=== PATIENT | male | born 1950 | race Caucasian/White ===

== ENCOUNTER 2020-12-19 13:24 | Outpatient (REF) | payer MEDICARE, SELFPAY ==
[2020-12-19 13:58] LABS: MANUAL DIFF FLAG NO
[2020-12-19 14:04] LABS: Basophils Percent Auto 0.3 % (0-2); Eosinophils Absolute Auto 0.1 X10*3/uL (0.0-0.4); Eosinophils Percent Auto 1.3 % (0-4); Hematocrit 40.5 % (42-52); Imm Gran Abs Auto 0.01 X10*3/uL (0.00-0.03); Imm Gran Pct Auto 0.2 % (0.0-0.4); Lymphocytes Percent Auto 31.9 % (20-40); Mean Corpuscular HGB Conc 32.1 g/dl (31.0-36.0); Mean Corpuscular Hemoglobin 29.3 pg (27.0-33.0); Mean Corpuscular Volume 91.2 fL (80-98); Mean Platelet Volume 10.4 fL (9.4-12.4); Monocytes Absolute Auto 0.6 X10*3/uL (0.1-1.2); Monocytes Percent Auto 8.7 % (2-11); Neutrophils Absolute Auto 3.7 X10*3/uL (2.0-8.3); Neutrophils Percent Auto 57.6 % (45-73); Platelet Count 196 X10*3/uL (160-400); Red Blood Count 4.44 X10*6/uL (4.60-5.80); Red Cell Distribution Width 13.6 % (11.0-16.0); White Blood Count 6.3 X10*3/uL (4.8-10.8)
[2020-12-19 14:21] LABS: Alanine Aminotransferase 11 U/L (0-40); Albumin Level 4.3 g/dL (3.5-5.0); Alkaline Phosphatase 61 U/L (39-117); Anion Gap 10 (12-20); Aspartate Amino Transferase 19 U/L (5-37); Bilirubin Total 0.6 mg/dL (0.0-1.0); Blood Urea Nitrogen 23 mg/dL (9-16); Calcium 9.5 mg/dL (8.4-10.2); Carbon Dioxide 28 mmol/L (22-29); Chloride 104 mmol/L (96-108); Estimated Glomerular Filt Rate > 60; Glucose Random 91 mg/dL (60-115); Potassium 4.4 mmol/L (3.3-5.1); Sodium 138 mmol/L (135-145); Total Protein 6.8 g/dL (6.5-8.0)
== END 2020-12-19 13:25 | disposition home or self-care (01) ==
LOC: HO.LAB 13:24
PROVIDERS: PCP Family Medicine; Visit Provider Family Medicine
DX: R53.83 Other fatigue (principal)
CPT/HCPCS: 36415; 80053; 85025

== ENCOUNTER 2022-12-12 12:57 | Outpatient (REF) | payer MEDICARE, SELFPAY ==
[2022-12-12 13:55] LABS: MANUAL DIFF FLAG NO
[2022-12-12 14:05] LABS: Basophils Percent Auto 0.5 % (0-2); Eosinophils Absolute Auto 0.1 X10*3/uL (0.0-0.4); Eosinophils Percent Auto 1.1 % (0-4); Hematocrit 41.4 % (42.0-52.0); Hemoglobin 13.5 g/dl (14.0-18.0); Imm Gran Abs Auto 0.01 X10*3/uL (0.00-0.03); Imm Gran Pct Auto 0.2 % (0.0-0.4); Lymphocytes Absolute Auto 1.9 X10*3/uL (1.2-4.9); Lymphocytes Percent Auto 29.6 % (20-40); Mean Corpuscular HGB Conc 32.6 g/dl (31.0-36.0); Mean Corpuscular Hemoglobin 29.9 pg (27.0-33.0); Mean Corpuscular Volume 91.8 fL (80.0-98.0); Mean Platelet Volume 10.9 fL (9.4-12.4); Monocytes Absolute Auto 0.4 X10*3/uL (0.1-1.2); Monocytes Percent Auto 6.5 % (2-11); Neutrophils Absolute Auto 3.9 x10*3/uL (2.0-8.3); Neutrophils Percent Auto 62.1 % (45-73); Platelet Count 191 X10*3/uL (160-400); Red Blood Count 4.51 X10*6/uL (4.60-5.80); Red Cell Distribution Width 13.2 % (11.0-16.0); White Blood Count 6.3 X10*3/uL (4.8-10.8)
[2022-12-12 14:47] LABS: Anion Gap 12 (12-20); Blood Urea Nitrogen 19 mg/dL (9-16); Carbon Dioxide 27 mmol/L (22-29); Chloride 104 mmol/L (96-108); Estimated Glomerular Filt Rate > 60; Potassium 3.7 mmol/L (3.3-5.1); Sodium 139 mmol/L (135-145)
== END 2022-12-12 12:58 | disposition home or self-care (01) ==
LOC: HO.LAB 12:57
PROVIDERS: PCP Family Medicine; Visit Provider Family Medicine
DX: M19.90 Unspecified osteoarthritis, unspecified site (principal); M81.0 Age-related osteoporosis without current pathological fracture; I10 Essential (primary) hypertension
CPT/HCPCS: 36415; 80051; 82306; 82565; 84520; 85025

== ENCOUNTER 2024-10-13 10:01 | Outpatient (REF) | payer MEDICARE, SELFPAY ==
[2024-10-13 11:32] LABS: Anion Gap 13 (12-20); Blood Urea Nitrogen 20 mg/dL (9-16); Carbon Dioxide 27 mmol/L (22-29); Chloride 105 mmol/L (96-108); Estimated Glomerular Filt Rate > 60; Potassium 4.2 mmol/L (3.3-5.1); Sodium 141 mmol/L (135-145)
== END 2024-10-13 10:02 | disposition home or self-care (01) ==
LOC: HO.LAB 10:01
PROVIDERS: PCP Family Medicine; Visit Provider Family Medicine
DX: I10 Essential (primary) hypertension (principal)
CPT/HCPCS: 36415; 80051; 82565; 84520

== ENCOUNTER 2025-01-27 08:02 | Outpatient (AMB) | payer MEDICARE, SELFPAY ==
--- NOTE | 2025-01-27 08:03 | MHC.PC.OV ---
Vital Signs 01/27/25 08:09 01/27/25 08:20 Height 5 ft 4 in Weight 56.245 kg BMI 21.3 BP 147/76 H 128/58 L Respiration 14 Pulse 85 Pulse Source Pulse Oximeter Temp 98.1 F Temp Source Temporal Artery Scan Pulse Oximetry (%) 99 Oxygen Delivery Method Room Air Intake Visit Reasons: Routine / Dr Castillo Kiln Puller Required: No Accompanied by: Self / Same As Patient Allergies azithromycin Allergy (Severe, Verified 01/27/25 08:07) Drowsy Penicillins Allergy (Severe, Verified 01/27/25 08:07) Anaphylaxis Medication List - Last Reconciled 01/27/25 by MARY Wynn amlodipine 5 mg PO BEDTIME sertraline 50 mg PO DAILY Tobacco use date assessed: 01/27/25 Fall risk assessment: No Falls in past year Last assessed Fall Risk: 01/27/25 Dental Screening Dental Screen Date: 01/27/25 Did you have a dental visit in the last 12 months?: Yes Did you have a dental problem in the last 6 months where you did not have access to dental care?: No Was dental information given to patient?: No HPI HPI Comments History of Present Illness Details 74-year-old female with history of hypertension, anxiety, osteoporosis, venous insufficiency, GERD presenting to the office today for management of chronic conditions and to establish care. Former patient of Dr. Castillo, last seen September 2024 Hypertension-taking amlodipine 5 mg daily. BP in the office 147/76, repeat 129/58. Osteoporosis-on calcium vitamin-D Venous insufficiency-stable Anxiety- getting panic attacks rare about 2-3 in last 3 months. Also generalized anxiety. Stressful home situation. Home situation- niece next door dx POTS and she needs to help a lot. Previously Concerns: Unintentional weight loss- has lost 25 pounds over the last 4 months. No appetite. Possibly related to anxiety. Has stayed at 125 lb for the last month. Does make it a point to eat. No fevers, chills, night sweats, nausea, vomiting, diarrhea, abdominal pain, melena, hematochezia, shortness of breath, wheezing, lightheadedness, headaches, chest pains ROS: See HPI EXAM: Constitutional - Awake and Alert, No apparent distress Eyes - PERRL Cardiovascular - S1S2, RRR, No edema Respiratory - Normal lung expansion, Normal respiratory effort, No respiratory distress, CTA bilaterally Extremities - no calf tenderness bilaterally, no swelling Skin - Warm/Dry Neurological - Alert & oriented x3 Psychological - Appropriate affect [facility] Medical History (Updated 01/27/25 @ 08:26 by MARY Wynn) Unintentional weight loss Screening for osteoporosis Venous insufficiency GERD (gastroesophageal reflux disease) Anxiety HTN (hypertension) Social History Housing: House Patient Tobacco Use Status: Former Tobacco user (Quite in 1985) e-Cigarette/Vaping Use: Never Used service: No Current occupational status: retired Cognitive needs: No Hearing needs: No Vision needs: Yes (Reading glasses) Questionnaire PHQ-9 Over the last 2 weeks, how often have you been bothered by any of the following problems? 1. Little interest or pleasure in doing things: several days 2. Feeling down, depressed, or hopeless: not at all 3. Trouble falling or staying asleep, or sleeping too much: several days 4. Feeling tired or having little energy: several days 5. Poor appetite or overeating: several days 6. Feeling bad about yourself - or that you are a failure or have let yourself or your family down: not at all 7. Trouble concentrating on things, such as reading the newspaper or watching television: not at all 8. Moving or speaking so slowly that other people could have noticed. Or the opposite - being so fidgety or restless that you have been moving around a lot more than usual: not at all 9. Thoughts that you would be better off or of hurting yourself in some way: not at all Total score: 4 Source: Developed by Drs. Lenin Carlson, Mariah Chavira, Catrachito Sierra and colleagues, with an educational rosa from [employer]. Thrive Questionnaire Date Thrive assessed: 01/27/25 I am a: Patient What is your living situation today?: I have a steady place to live Within the past 12 months, did the food you bought not last and you didn't have the money to get more?: Never true Within the past 12 months, did you worry whether your food would run out before you got money to buy more?: Never true Do you have trouble paying for medicines?: No Do you have trouble getting transportation to medical appointments?: No Do you have trouble paying your heating and electricity bill?: No Do you have trouble taking care of your child, family member or friend?: No Do you have trouble with day-to-day activities such as bathing, preparing meals, shopping, managing finances, etc.?: No Are you currently unemployed and looking for a job?: No Are you interested in more education?: No Please select the resources that you would like help with: None THRIVE Score: 0 DELFINO-7 AMB Questionnaire DELFINO-7 Date DELFINO - 7 assessed: 01/27/25 Feeling nervous, anxious, or on edge: 2 = More than half the days Not being able to stop or control worryin = More than half the days Worrying too much about different things: 1 = Several days Trouble relaxin = More than half the days Being so restless that it is hard to sit still: 1 = Several days Becoming easily annoyed or irritable: 0 = Not at all Feeling afraid as if something awful might happen: 0 = Not at all Total DELFINO-7 score (0-4 normal; 5-9 mild; 10-14 moderate; 15-21 severe): 8 Source: Developed by Drs. Lenin Carlson, Mariah Chavira, Catrachito Sierra and colleagues, with an educational rosa from [employer]. Physical exam (Primary Care) Vital Signs: Last Vital Signs Temp 98.1 F 01/27/25 08:09 Pulse 85 01/27/25 08:09 Resp 14 01/27/25 08:09 BP 128/58 L 01/27/25 08:20 Pulse Ox 99 01/27/25 08:09 Oxygen Delivery Method Room Air 01/27/25 08:09 BMI result Body Mass Index 21.3 Tobacco/Smoking Status: Tobacco use Status Tobacco use date assessed 01/27/25 01/27/25 08:14 Patient Tobacco Use Status Former Tobacco user (Quite 01/27/25 08:14 in 1985) e-Cigarette/Vaping Use Never Used 01/27/25 08:14 PHQ-9: PHQ-9 Score PHQ-9: Total score 4 01/27/25 08:14 Thrive Assessment: Date of Thrive Assessment Date Thrive assessed 01/27/25 01/27/25 08:14 Coding Level of Care Code New Pt Level 4 (60117) Complex EM visit Add On G2211 Diagnoses GERD (gastroesophageal reflux disease) K21.9 Unintentional weight loss R63.4 Anxiety F41.9 HTN (hypertension) I10 Assessment & Plan Assessment & Plan (1) GERD (gastroesophageal reflux disease): Code(s): K21.9 - Gastro-esophageal reflux disease without esophagitis Category: Medical Plan: Stable. Avoid triggering foods (2) Unintentional weight loss: Code(s): R63.4 - Abnormal weight loss Category: Medical Plan: Has leveled off over the last month. Suspect this is related to anxiety/panic. Continue monitoring weight. She will return in 1 month for weight check (3) Anxiety: Code(s): F41.9 - Anxiety disorder, unspecified Category: Medical Plan: Uncontrolled. Sertraline initiated. Educated on side effects including black box warning (4) HTN (hypertension): Code(s): I10 - Essential (primary) hypertension Category: Medical Plan: Controlled on recheck. Continue amlodipine Plan Follow-up in the office for 1 month. Last labs reviewed. Medications: New amlodipine 5 mg PO BEDTIME 90 tabs 1RF sertraline Take 1/2 tab daily x 1 week, then increase to 1 tab daily 50 mg PO DAILY 90 tabs 1RF
[2025-01-27 08:09] VITALS: BP 147/76; PULSE 85; RESP 14; TEMP 36.7; O2SAT 99; BMI 21.3
[2025-01-27 08:20] VITALS: BP 128/58
== END 2025-01-27 08:26 | disposition home or self-care (01) ==
LOC: HO.HMCHD 08:02
PROVIDERS: PCP Physician Assistant; Visit Provider Physician Assistant
DX: K21.9 Gastro-esophageal reflux disease without esophagitis (principal); R63.4 Abnormal weight loss; F41.9 Anxiety disorder, unspecified; I10 Essential (primary) hypertension

== ENCOUNTER → 2025-01-27 08:02 | Outpatient (BNVA) | payer MEDICARE, SELFPAY | PROVIDERS: PCP Family Medicine; Visit Provider Physician Assistant | DX: K21.9 Gastro-esophageal reflux disease without esophagitis (principal); R63.4 Abnormal weight loss; F41.9 Anxiety disorder, unspecified; I10 Essential (primary) hypertension; M81.0 Age-related osteoporosis without current pathological fracture; I87.2 Venous insufficiency (chronic) (peripheral); Z79.899 Other long term (current) drug therapy; Z13.30 Encounter for screening examination for mental health and behavioral disorders, unspecified; Z13.39 Encounter for screening examination for other mental health and behavioral disorders | CPT/HCPCS: 96127; 99202 ==

== ENCOUNTER 2025-03-01 10:05 | Outpatient (AMB) | payer MEDICARE, SELFPAY ==
--- NOTE | 2025-03-01 09:41 | A.OFFPC_ITS ---
Vital Signs 03/01/25 10:10 03/01/25 10:33 Height 5 ft 4 in Weight 58.06 kg BMI 22.0 BP 160/92 H 138/60 Blood Pressure Location Lt brachial Position Sitting Respiration 16 Pulse 91 Pulse Source Pulse Oximeter Temp 96.8 F Temp Source Temporal Artery Scan Pulse Oximetry (%) 96 Oxygen Delivery Method Room Air Intake Visit Reasons: 1 mo f/u Medical Insurance Claims Processor Required: No Accompanied by: Self / Same As Patient Allergies azithromycin Allergy (Severe, Verified 03/01/25 09:41) Drowsy Penicillins Allergy (Severe, Verified 03/01/25 09:41) Anaphylaxis Tobacco use date assessed: 01/27/25 Dental Screening Dental Screen Date: 01/27/25 HPI HPI Comments History of Present Illness Details 74-year-old female with history of hyper tension, anxiety, osteoporosis, venous insufficiency, GERD presenting to the office today for management of chronic conditions and follow up. Last seen 1 month. Going to the [facility] in September and looking forward to this. Hypertension-taking amlodipine 5 mg daily. BP in the office initially 160/92, recheck 138/60. She does check her blood pressures at home, this morning 135/72 Osteoporosis-on calcium vitamin-D, occasionally stops due to thrush Venous insufficiency-stable Anxiety-has been started on sertraline at last visit but states that she did not end up starting the medication. She states that she has been managing her anxiety/nervousness well with positive coping mechanisms. She is able to challenge her thoughts and practice mindfulness with good effect. She has also been able to eat more and weight has stabilized. She is still supplementing with boost but has a large meal at nighttime along with snacking throughout the day. She is also golfing Concerns: None Health maintenance: Last mammogram 04/2024, 1 year follow-up advised Last screening colonoscopy 02/2024, PRN follow-up ROS: See HPI EXAM: Constitutional - Awake and Alert, No apparent distress Eyes - PERRL Cardiovascular - S1S2, RRR, No edema Respiratory - Normal lung expansion, Normal respiratory effort, No respiratory distress, CTA bilaterally Extremities - no calf tenderness bilaterally, no swelling Skin - Warm/Dry Neurological - Alert & oriented x3 Psychological - Appropriate [facility] Medical History (Updated 01/27/25 @ 08:26 by MARY Wynn) Unintentional weight loss Screening for osteoporosis Venous insufficiency GERD (gastroesophageal reflux disease) Anxiety HTN (hypertension) Surgical History (Updated 02/27/25 @ 16:24 by Dariela Irving) History of colonoscopy (~03/07/24) Social History Housing: House Patient Tobacco Use Status: Former Tobacco user (Quite in 1985) e-Cigarette/Vaping Use: Never Used service: No Current occupational status: retired Cognitive needs: No Hearing needs: No Vision needs: Yes (Reading glasses) Questionnaire Thrive Questionnaire Date Thrive assessed: 01/27/25 DELFINO-7 AMB Questionnaire DELFINO-7 Date DELFINO - 7 assessed: 01/27/25 Source: Developed by Drs. Lenin Carlson, Mariah Chavira, Catrachito Sierra and colleagues, with an educational rosa from [employer]. Physical exam (Primary Care) Vital Signs: Last Vital Signs Temp 96.8 F 03/01/25 10:10 Pulse 91 03/01/25 10:10 Resp 16 03/01/25 10:10 BP 138/90 H 03/01/25 10:33 Pulse Ox 96 03/01/25 10:10 Oxygen Delivery Method Room Air 03/01/25 10:10 BMI result Body Mass Index 22.0 Tobacco/Smoking Status: Tobacco use Status Tobacco use date assessed 01/27/25 03/01/25 09:41 Patient Tobacco Use Status Former Tobacco user (Quite 03/01/25 09:41 in 1985) e-Cigarette/Vaping Use Never Used 03/01/25 09:41 Thrive Assessment: Date of Thrive Assessment Date Thrive assessed 01/27/25 03/01/25 09:41 Coding Level of Care Code Est Pt Level 4 (09367) Complex EM visit Add On G2211 Diagnoses GERD (gastroesophageal reflux disease) K21.9 Unintentional weight loss R63.4 Anxiety F41.9 HTN (hypertension) I10 Assessment & Plan Assessment & Plan (1) GERD (gastroesophageal reflux disease): Code(s): K21.9 - Gastro-esophageal reflux disease without esophagitis Category: Medical Plan: Stable. Avoid triggering foods (2) Unintentional weight loss: Code(s): R63.4 - Abnormal weight loss Category: Medical Plan: Has leveled off over the last month. Suspect this is related to anxiety/panic. Continue monitoring weight. She will return in 1 month for weight check (3) Anxiety: Code(s): F41.9 - Anxiety disorder, unspecified Category: Medical Plan: Much improved. Can continue with positive coping mechanisms including challenging and intrusive thoughts and practicing mindfulness. Should symptoms begin to become less manageable, can initiate sertraline as prescribed. Reach out to office if so (4) HTN (hypertension): Code(s): I10 - Essential (primary) hypertension Category: Medical Plan: Controlled on recheck. Continue amlodipine. Continue checking blood pressures at home Plan Follow-up in the office for annual physical exam and 7 months with labs completed prior to visit Orders: Orders Complete Blood Count Auto Diff 7 Months F41.9 - Anxiety disorder, unspecified, I10 - Essential (primary) hypertension Lipid Panel 7 Months F41.9 - Anxiety disorder, unspecified, I10 - Essential (primary) hypertension Vitamin D 25-OH Total 7 Months F41.9 - Anxiety disorder, unspecified, I10 - Essential (primary) hypertension TSH reflex Free T4 7 Months F41.9 - Anxiety disorder, unspecified, I10 - Essential (primary) hypertension Basic Metabolic Panel 7 Months F41.9 - Anxiety disorder, unspecified, I10 - Essential (primary) hypertension Liver Panel 7 Months F41.9 - Anxiety disorder, unspecified, I10 - Essential (primary) hypertension
[2025-03-01 10:10] VITALS: BP 160/92; PULSE 91; RESP 16; TEMP 36; O2SAT 96; BMI 22.0
[2025-03-01 10:33] VITALS: BP 138/60
== END 2025-03-01 10:38 | disposition home or self-care (01) ==
LOC: HO.HMCHD 10:06
PROVIDERS: Visit Provider Physician Assistant
DX: K21.9 Gastro-esophageal reflux disease without esophagitis (principal); R63.4 Abnormal weight loss; F41.9 Anxiety disorder, unspecified; I10 Essential (primary) hypertension

== ENCOUNTER → 2025-03-01 10:05 | Outpatient (BNVA) | payer MEDICARE, SELFPAY | PROVIDERS: Visit Provider Physician Assistant | DX: K21.9 Gastro-esophageal reflux disease without esophagitis (principal); R63.4 Abnormal weight loss; F41.9 Anxiety disorder, unspecified; I10 Essential (primary) hypertension | CPT/HCPCS: 99212 ==